=== PATIENT | female | born 1985 | race Caucasian/White ===

== ENCOUNTER 2018-02-17 12:58 | Emergency (ER) | payer OTHER ==
[~2018-02-17] VITALS: Ht 157.5 cm; Wt 0.9 kg
[2018-02-17 13:10] VITALS: BP 123/72
--- NOTE | 2018-02-17 13:19 | NUR ---
AMBULATES TO BED 1 W/ STEADY GAIT
--- NOTE | 2018-02-17 13:20 | NUR ---
PT C/O RASH THAT STARTED ON LEGS 1 WEEK AGO, PROGRESSING TO SWOLLEN EYE LIDS AND LIPS SINCE LAST NIGHT. ALSO C/O PAINFUL URINATION. WAS SEEN HERE FOR SAME REACTION 4 MONTHS AGO. DENIES SOB OR COUGH. AIRWAY PATENT. HX: DENIES
[2018-02-17] MEDS ORDERED: LEVOFLOXACIN 500 MG TAB PO ONE (13:40)
[2018-02-17] MEDS ORDERED: ALBUTEROL SULFATE/IPRATROPIU 3 ML SOL IH ONE (13:40)
[2018-02-17] MEDS ORDERED: diphenhydrAMINE 50 MG/ML VIAL IM ONE (13:40)
[2018-02-17] MEDS ORDERED: DEXAMETHASONE 10 MG/ML VIAL IM ONE (13:40)
[2018-02-17 14:02] LABS: APPEARANCE,URINE CLOUDY (CLEAR); BILIRUBIN,URINE 2+ (NEGATIVE); BLOOD, URINE 3+ (NEGATIVE); COLOR,URINE YELLOW (YELLOW); LEUKOCYTE ESTERASE ,URINE 3+ (NEGATIVE); NITRITE, URINE NEGATIVE (NEGATIVE); PH,URINE 6.5 (5.0-9.0); UGLUCOSE NEGATIVE (NEGATIVE)
[2018-02-17 14:09] LABS: RBC,URINE 20-50 /HPF (0-5); WBC,URINE TOO MANY TO COUNT /HPF (0-5)
[2018-02-17 15:15] VITALS: BP 131/66
--- NOTE | 2018-02-17 15:15 | NUR ---
Patient discharged with v/s stable. Written and verbal after care instructions given and explained. Patient alert, oriented and verbalized understanding of instructions. Ambulatory with by parent. All questions addressed prior to discharge. ID band removed. Patient advised to follow up with PMD. Rx of Levaquin, Atarax, Prednisone given. Patient educated on indication of medication including possible reaction and side effects. Opportunity to ask questions provided and answered.
== END 2018-02-17 15:15 | disposition home or self-care (01) ==
LOC: MED 12:58
DX: L50.9 Urticaria, unspecified (principal); N30.90 Cystitis, unspecified without hematuria; J45.909 Unspecified asthma, uncomplicated; I10 Essential (primary) hypertension
CPT/HCPCS: 81001; 81025; 87086; 94640; 96372; 99284; J1100; J1200; J7620